=== PATIENT | female | born 1965 | race Caucasian/White ===

== ENCOUNTER 2020-08-04 12:40 | Day surgery (SDC) | payer OTHER ==
[2020-08-02 14:13] VITALS: BMI 35.2
--- OUTSIDE RECORDS SUMMARY | 2020-08-04 12:51 | XMS ---
:1965 Author Organization [facility] Support Name Relationship Address Phone [facility] Unavailable [address] [place] [address] ASIA GUTIERREZ SISTER [address] [place] [address] Re-disclosure Warning The records that you are about to access may contain information from federally- assisted alcohol or drug abuse programs. If such information is present, then the following federally mandated warning applies: This information has been disclosed to you from records protected by federal confidentiality rules (42 CFR part 2). The federal rules prohibit you from making any further disclosure of this information unless further disclosure is expressly permitted by the written consent of the person to whom it pertains or as otherwise permitted by 42 CFR part 2. A general authorization for the release of medical or other information is NOT sufficient for this purpose. The Federal rules restrict any use of the information to criminally investigate or prosecute any alcohol or drug abuse patient.The records that you are about to access may contain highly sensitive health information, the redisclosure of which is protected by Article 27-F of the [facility] Public Health law. If you continue you may haveaccess to information: Regarding HIV / AIDS; Provided by facilities licensed or operated by the [facility] Office of Mental Health; or Provided by the [facility] Office for People With Developmental Disabilities. If such information is present, then the following [facility] mandated warning applies: This information has been disclosed to you from confidential records which are protected by state law. State law prohibits you from making any further disclosure of this information without the specific written consent of the person to whom it pertains, or as otherwise permitted by law. Any unauthorized further disclosure in violation of state law may result in a fine or shelter sentence or both. A general authorization for the release of medical or other information is NOT sufficient authorization for further disclosure. Insurance Providers Payer name Policy type Policy ID Covered Covered democrat's Policy P roberta / Coverage democrat ID relationship to [employer] Inf ormation type [employer] [id number] SP [id number] [facility]
[2020-08-04 14:40] VITALS: PULSE 78; TEMP 97.8
[2020-08-04 15:05] VITALS: BP 110/78
--- NOTE | 2020-08-09 17:39 | PATH ---
Surgical Pathology Report Patient Name: ZHAO JOHNSON [facility]. Rec. #: [id number] /Age/Gender: 1965 (Age: 54) / F Account: [id number] Location: [facility] Taken: 08/04/2020 Received: 08/04/2020 Reported: 08/09/2020 Physicians: Kelsie Ureña M.D. Specimen(s) Received A: BIOPSY SECOND PORTION DUODENUM B: BIOPSY GASTRIC ANTRUM AND ULCER MARGIN C: BIOPSY GE JUNCTION Clinical History Abdominal pain Postoperative diagnosis: Gastric ulcer, gastritis Final Diagnosis A. DUODENUM, SECOND PORTION, BIOPSY: DUODENAL MUCOSA WITH MILD ACUTE AND CHRONIC DUODENITIS. B. GASTRIC ANTRUM AND ULCER MARGIN, BIOPSY: GASTRIC ANTRAL MUCOSA WITH FOCAL MILD CHRONIC ACTIVE GASTRITIS. IMMUNOHISTOCHEMICAL STAIN FOR H. PYLORI IS NEGATIVE. C. GE JUNCTION, BIOPSY: SQUAMOCOLUMNAR MUCOSA WITH MODERATE ACUTE AND CHRONIC INFLAMMATION AND CHANGES OF SEVERE REFLUX ESOPHAGITIS. NO INTESTINAL METAPLASIA OR DYSPLASIA IDENTIFIED. Positive and negative controls (internal if applicable) show appropriate results. Electronically Signed Kelsie Wiggins M.D. Gross Description A. Received in formalin, labeled "biopsy second portion of duodenum" is a church, irregular portion of soft tissue measuring 0.3 cm. in greatest dimension. The specimen is submitted in toto in one cassette. B. Received in formalin, labeled "biopsy gastric antrum and ulcer margin" are 2 church, irregular portions of soft tissue measuring 0.2 and 0.3 cm. in greatest dimension. The specimens are submitted in toto in one cassette. C. Received in formalin, labeled "biopsy GE junction" is a church, irregular portion of soft tissue measuring 0.4 cm. in greatest dimension. The specimen is submitted in toto in one cassette. DL08/07/2020 saudi08/07/2020
== END 2020-08-04 15:05 | disposition home or self-care (01) ==
LOC: FASU-ENDO 12:40
PROVIDERS: ATTEND Internal Medicine Gastroenterology
PROC: 0DB68ZX Excision of Stomach, Via Natural or Artificial Opening Endoscopic, Diagnostic (ICD-10-PCS; 2020-08-04)
PROC: 0DB48ZX Excision of Esophagogastric Junction, Via Natural or Artificial Opening Endoscopic, Diagnostic (ICD-10-PCS; 2020-08-04)
PROC: 0DB98ZX Excision of Duodenum, Via Natural or Artificial Opening Endoscopic, Diagnostic (ICD-10-PCS; principal; 2020-08-04 14:01)
DX: K25.9 Gastric ulcer, unspecified as acute or chronic, without hemorrhage or perforation (principal); K29.80 Duodenitis without bleeding; K29.50 Unspecified chronic gastritis without bleeding; K21.00 Gastro-esophageal reflux disease with esophagitis, without bleeding; R10.13 Epigastric pain
CPT/HCPCS: 88305-TC; 88342-TC

== ENCOUNTER 2020-08-20 11:20 | Inpatient (IN) | payer OTHER ==
[2020-08-20] MEDS ORDERED: FAMOTIDINE 20 MG/50 ML IVPB 20 MG/50 ML MG IVPB ONE ×2 (11:48→13:11)
[2020-08-20] MEDS ORDERED: ONDANSETRON 4 MG/2 ML VIAL IVPUSH ONE (11:48)
[2020-08-20] MEDS ORDERED: KETOROLAC TROMETHAMINE 15 MG/ML VIAL IVPUSH ONE (11:49)
[2020-08-20] MEDS ORDERED: SODIUM CHLORIDE 0.9% 500 ML INFUS.BAG IV ONE (11:49)
[2020-08-20] MEDS ORDERED: KETOROLAC TROMETHAMINE 15 MG/ML VIAL ONE (12:10)
[2020-08-20] MEDS ORDERED: HYOSCYAMINE SULFATE 0.125 MG *ODT PO ONE (12:16)
[2020-08-20 12:17] LABS: BASO % 0.3 % (0-2.0); EOS % 2.1 % (0-4.5); HEMATOCRIT 35.8 % (32.4-45.2); HEMOGLOBIN 12.3 GM/dL (10.7-15.3); LYMPH % 13.2 % (8-40); MCH 28.4 pg (25.7-33.7); MCHC 34.2 g/dl (32.0-36.0); NEUT % 80.4 % (42.8-82.8); PLATELET COUNT 178 K/MM3 (134-434); RBC 4.31 M/mm3 (3.60-5.2); RDW 13.5 % (11.6-15.6); WHITE BLOOD COUNT 6.4 K/mm3 (4.0-10.0)
[2020-08-20 12:36] LABS: EPI CELLS 3 /uL (0-25.1); HYALINE CASTS 0 /uL (0-3.1); PH,URINE 6.5 (5.0-8.0); URINE APPEARANCE CLOUDY; URINE BILIRUBIN NEGATIVE (NEGATIVE); URINE COLOR DK YELLOW; URINE GLUCOSE (UA) NEGATIVE (NEGATIVE); URINE KETONE NEGATIVE (NEGATIVE); URINE LEUK ESTERASE NEGATIVE (NEGATIVE); URINE NITRITE POSITIVE (NEGATIVE); URINE PROTEIN NEGATIVE (NEGATIVE); URINE RBC 16 /uL (0-23.9); URINE WBC 5 /uL (0-25.8)
[2020-08-20 12:45] LABS: POTASSIUM 5.3 mmol/L (3.5-5.1)
[2020-08-20 12:47] LABS: ALBUMIN 3.8 g/dl (3.4-5.0); CALCIUM 8.4 mg/dL (8.5-10.1)
[2020-08-20 12:48] LABS: BLOOD UREA NITROGEN 14.7 mg/dL (7-18)
[2020-08-20 12:51] LABS: CREATININE 0.7 mg/dL (0.55-1.3)
[2020-08-20 12:52] LABS: BILIRUBIN,TOTAL 1.3 mg/dL (0.2-1)
[2020-08-20] MEDS ORDERED: CEFTRIAXONE 1,000 MG in DEXTROSE 5%-WATER - 50 ML IVPB ONE (15:31)
[2020-08-20] MEDS ORDERED: METOCLOPRAMIDE HCL INJECTION 10 MG/2 ML VIAL IVPUSH ONE (15:31)
[2020-08-20] MEDS ORDERED: CEFTRIAXONE 1 GM/50 ML BAG ONE (15:56)
[2020-08-20] MEDS ORDERED: METOCLOPRAMIDE HCL INJECTION 10 MG/2 ML VIAL ONE (15:56)
[2020-08-20 16:22] LABS: URINE BACTERIA 45.8 /uL (0-1359)
[2020-08-20] MEDS ORDERED: ACETAMINOPHEN 1000 MG/100 ML VIAL (NON FORMULARY) IVPB PRN (16:58)
[2020-08-20] MEDS: SODIUM CHLORIDE 1,000 ML IV SCH (17:12)
[2020-08-20] MEDS: HEPARIN NA (PORCINE) 5,000 UNITS/ML 1ML VIAL SQ SCH ×2 (17:13→22:02)
[2020-08-20] MEDS: PANTOPRAZOLE SODIUM 40 MG VIAL IVPUSH SCH (17:13)
[2020-08-20] MEDS ORDERED: ACETAMINOPHEN INJECTION 100 ML IVPB ONE (17:34)
[2020-08-20 21:19] VITALS: BMI 36.5
[2020-08-20] MEDS ORDERED: FLU VACCINE (FLULAVAL) PF 60 MCG/0.5 ML SYRINGE 2020-2021 IM ONE (21:30)
[2020-08-20] MEDS: MORPHINE SULFATE 2 MG/ML VIAL IVPUSH PRN (22:00)
[2020-08-20] MEDS ORDERED: ONDANSETRON 4 MG/2 ML VIAL IVPUSH PRN (22:00)
[2020-08-21] MEDS: SODIUM CHLORIDE 1,000 ML IV SCH ×2 (04:15→17:42)
[2020-08-21] MEDS: MORPHINE SULFATE 2 MG/ML VIAL IVPUSH PRN (05:31)
[2020-08-21] MEDS: HEPARIN NA (PORCINE) 5,000 UNITS/ML 1ML VIAL SQ SCH ×3 (05:36→22:01)
[2020-08-21 07:46] LABS: BASO % 0.2 % (0-2.0); EOS % 2.2 % (0-4.5); HEMATOCRIT 31.3 % (32.4-45.2); HEMOGLOBIN 10.6 GM/dL (10.7-15.3); LYMPH % 20.1 % (8-40); MCH 28.2 pg (25.7-33.7); MEAN CELL VOLUME 82.9 fl (80-96); MEAN PLT VOLUME 7.5 fl (7.5-11.1); MONO % 4.4 % (3.8-10.2); NEUT % 73.1 % (42.8-82.8); PLATELET COUNT 153 K/MM3 (134-434); RBC 3.78 M/mm3 (3.60-5.2); RDW 13.5 % (11.6-15.6); WHITE BLOOD COUNT 5.3 K/mm3 (4.0-10.0)
[2020-08-21 07:47] LABS: INR 1.09 (0.83-1.09); PROTHROMBIN TIME (PATIENT) 13.2 SEC (9.7-13.0)
[2020-08-21 08:04] LABS: POTASSIUM 3.9 mmol/L (3.5-5.1)
[2020-08-21 08:06] LABS: ALBUMIN 3.2 g/dl (3.4-5.0); CALCIUM 8.7 mg/dL (8.5-10.1)
[2020-08-21 08:07] LABS: BLOOD UREA NITROGEN 9.4 mg/dL (7-18); MAGNESIUM 2.1 mg/dL (1.8-2.4)
[2020-08-21 08:10] LABS: CREATININE 0.6 mg/dL (0.55-1.3); PHOSPHOROUS 2.8 mg/dL (2.5-4.9)
[2020-08-21 08:11] LABS: BILIRUBIN,TOTAL 1.3 mg/dL (0.2-1)
[2020-08-21] MEDS ORDERED: cefTRIAXone SODIUM 1 GM VIAL ONE (08:45)
[2020-08-21] MEDS ORDERED: DEXTROSE 5%-WATER - 50 ML IVPB ONE (08:45)
[2020-08-21] MEDS ORDERED: SODIUM ZIRCONIUM CYCLOSILICATE (LOKELMA) 5 GM PACKET PO ONE (10:50)
[2020-08-21] MEDS: PANTOPRAZOLE SODIUM 40 MG VIAL IVPUSH SCH (12:08)
[2020-08-21] MEDS: CEFTRIAXONE 1 GM in DEXTROSE 5%-WATER - 50 ML IVPB SCH (12:08)
[2020-08-21] MEDS: oxyCODONE HCL 5 MG TABLET PO PRN ×2 (12:08→21:57)
[2020-08-21] MEDS: KETOROLAC TROMETHAMINE 15 MG/ML VIAL IVPUSH PRN (17:44)
[2020-08-21] MEDS ORDERED: MAGNESIUM HYDROX 2400MG/30ML ORAL SUSPENSION 30 ML CUP PO ONE (22:16)
[2020-08-21] MEDS: VENLAFAXINE HCL 75 MG E.R. CAPSULES PO SCH ×2 (22:40→23:58)
[2020-08-22] MEDS: KETOROLAC TROMETHAMINE 15 MG/ML VIAL IVPUSH PRN (06:14)
[2020-08-22] MEDS: SODIUM CHLORIDE 1,000 ML IV SCH ×2 (06:14→17:48)
[2020-08-22] MEDS: HEPARIN NA (PORCINE) 5,000 UNITS/ML 1ML VIAL SQ SCH ×3 (06:27→21:05)
[2020-08-22 08:44] LABS: POTASSIUM 4.1 mmol/L (3.5-5.1)
[2020-08-22 08:46] LABS: CALCIUM 9.3 mg/dL (8.5-10.1)
[2020-08-22 08:47] LABS: ALBUMIN 3.7 g/dl (3.4-5.0); BLOOD UREA NITROGEN 10.8 mg/dL (7-18); MAGNESIUM 2.1 mg/dL (1.8-2.4)
[2020-08-22 08:49] LABS: CREATININE 0.5 mg/dL (0.55-1.3)
[2020-08-22 08:50] LABS: PHOSPHOROUS 3.1 mg/dL (2.5-4.9)
[2020-08-22 08:51] LABS: BILIRUBIN,TOTAL 1.4 mg/dL (0.2-1); TOT PROT 6.6 g/dl (6.4-8.2)
[2020-08-22 09:00] LABS: BASO % 0.3 % (0-2.0); EOS % 3.1 % (0-4.5); HEMATOCRIT 34.3 % (32.4-45.2); HEMOGLOBIN 11.7 GM/dL (10.7-15.3); LYMPH % 21.8 % (8-40); MCH 28.3 pg (25.7-33.7); MEAN CELL VOLUME 83.2 fl (80-96); MEAN PLT VOLUME 7.6 fl (7.5-11.1); NEUT % 69.8 % (42.8-82.8); PLATELET COUNT 179 K/MM3 (134-434); RBC 4.12 M/mm3 (3.60-5.2); RDW 13.6 % (11.6-15.6)
[2020-08-22] MEDS ORDERED: cefTRIAXone SODIUM 1 GM VIAL ONE (09:10)
[2020-08-22] MEDS ORDERED: DEXTROSE 5%-WATER - 50 ML IVPB ONE (09:11)
[2020-08-22] MEDS: CEFTRIAXONE 1 GM in DEXTROSE 5%-WATER - 50 ML IVPB SCH (09:23)
[2020-08-22] MEDS: VENLAFAXINE HCL 75 MG E.R. CAPSULES PO SCH (10:12)
[2020-08-22] MEDS: PANTOPRAZOLE 40 MG TABLET PO SCH (10:12)
[2020-08-22] MEDS: POLYETHYLENE GLYCOL 3350 119 GM BTL PO SCH ×2 (12:01→21:05)
[2020-08-22] MEDS: oxyCODONE HCL 5 MG TABLET PO PRN (15:47)
[2020-08-22] MEDS: TAMSULOSIN HCL 0.4 MG CAP PO SCH ×2 (17:11→17:52)
[2020-08-22] MEDS: ACETAMINOPHEN 325 MG TABLET (FP) PO PRN (20:18)
[2020-08-23] MEDS: oxyCODONE HCL 5 MG TABLET PO PRN (00:04)
[2020-08-23] MEDS ORDERED: TRIMETHOBENZAMIDE HCL 200MG/2ML INJ IM ONE (01:27)
[2020-08-23] MEDS: ACETAMINOPHEN 325 MG TABLET (FP) PO PRN ×3 (02:16→18:14)
[2020-08-23] MEDS: SODIUM CHLORIDE 1,000 ML IV SCH ×2 (02:36→14:52)
[2020-08-23] MEDS: HEPARIN NA (PORCINE) 5,000 UNITS/ML 1ML VIAL SQ SCH (06:20)
[2020-08-23 08:19] LABS: BASO % 0.3 % (0-2.0); EOS % 1.9 % (0-4.5); HEMATOCRIT 33.4 % (32.4-45.2); HEMOGLOBIN 10.9 GM/dL (10.7-15.3); LYMPH % 16.7 % (8-40); MCH 27.2 pg (25.7-33.7); MCHC 32.8 g/dl (32.0-36.0); MEAN CELL VOLUME 82.9 fl (80-96); MEAN PLT VOLUME 7.4 fl (7.5-11.1); MONO % 4.6 % (3.8-10.2); NEUT % 76.5 % (42.8-82.8); PLATELET COUNT 190 K/MM3 (134-434); RBC 4.02 M/mm3 (3.60-5.2); RDW 13.5 % (11.6-15.6); WHITE BLOOD COUNT 5.2 K/mm3 (4.0-10.0)
[2020-08-23 08:37] LABS: POTASSIUM 5.1 mmol/L (3.5-5.1)
[2020-08-23 08:41] LABS: ALBUMIN 3.5 g/dl (3.4-5.0)
[2020-08-23 08:42] LABS: MAGNESIUM 2.4 mg/dL (1.8-2.4)
[2020-08-23 08:45] LABS: CREATININE 0.5 mg/dL (0.55-1.3); PHOSPHOROUS 3.3 mg/dL (2.5-4.9)
[2020-08-23 08:46] LABS: BILIRUBIN,TOTAL 1.1 mg/dL (0.2-1); TOT PROT 6.1 g/dl (6.4-8.2)
[2020-08-23] MEDS ORDERED: cefTRIAXone SODIUM 1 GM VIAL ONE (09:06)
[2020-08-23] MEDS ORDERED: DEXTROSE 5%-WATER - 50 ML IVPB ONE (09:06)
[2020-08-23] MEDS: TAMSULOSIN HCL 0.4 MG CAP PO SCH (09:26)
[2020-08-23] MEDS: PANTOPRAZOLE 40 MG TABLET PO SCH (09:26)
[2020-08-23] MEDS: VENLAFAXINE HCL 75 MG E.R. CAPSULES PO SCH (09:29)
[2020-08-23] MEDS: POLYETHYLENE GLYCOL 3350 119 GM BTL PO SCH ×2 (09:29→21:34)
[2020-08-23] MEDS: CEFTRIAXONE 1 GM in DEXTROSE 5%-WATER - 50 ML IVPB SCH (09:29)
[2020-08-24] MEDS: SODIUM CHLORIDE 1,000 ML IV SCH ×3 (03:37→23:28)
[2020-08-24 08:38] LABS: BASO % 0.2 % (0-2.0); EOS % 3.3 % (0-4.5); HEMATOCRIT 32.4 % (32.4-45.2); HEMOGLOBIN 10.6 GM/dL (10.7-15.3); LYMPH % 25.5 % (8-40); MCH 27.2 pg (25.7-33.7); MCHC 32.8 g/dl (32.0-36.0); MEAN PLT VOLUME 7.4 fl (7.5-11.1); MONO % 5.3 % (3.8-10.2); NEUT % 65.7 % (42.8-82.8); PLATELET COUNT 184 K/MM3 (134-434); RDW 13.8 % (11.6-15.6); WHITE BLOOD COUNT 4.5 K/mm3 (4.0-10.0)
[2020-08-24 09:08] LABS: POTASSIUM 4.7 mmol/L (3.5-5.1)
[2020-08-24 09:12] LABS: ALBUMIN 3.4 g/dl (3.4-5.0); BLOOD UREA NITROGEN 10.9 mg/dL (7-18); MAGNESIUM 2.3 mg/dL (1.8-2.4)
[2020-08-24 09:15] LABS: CREATININE 0.5 mg/dL (0.55-1.3)
[2020-08-24 09:16] LABS: BILIRUBIN,TOTAL 0.7 mg/dL (0.2-1); TOT PROT 5.9 g/dl (6.4-8.2)
[2020-08-24] MEDS: VENLAFAXINE HCL 75 MG E.R. CAPSULES PO SCH (10:08)
[2020-08-24] MEDS: PANTOPRAZOLE 40 MG TABLET PO SCH (10:08)
[2020-08-24] MEDS: POLYETHYLENE GLYCOL 3350 119 GM BTL PO SCH ×2 (10:08→22:44)
[2020-08-24] MEDS: TAMSULOSIN HCL 0.4 MG CAP PO SCH (10:08)
[2020-08-24] MEDS ORDERED: CEFTRIAXONE 1 GM in DEXTROSE 5%-WATER - 50 ML IVPB SCH (11:00)
[2020-08-24] MEDS ORDERED: cefTRIAXone SODIUM 1 GM VIAL ONE (11:05)
[2020-08-24] MEDS ORDERED: DEXTROSE 5%-WATER - 50 ML IVPB ONE (11:05)
[2020-08-24] MEDS ORDERED: DEXAMETHASONE SOD PHOSPHATE 4 MG/1 ML VIAL ONE (12:16)
[2020-08-24] MEDS ORDERED: MIDAZOLAM HCL 2 MG/2 ML SINGLE DOSE VIAL ONE (12:17)
[2020-08-24] MEDS ORDERED: ONDANSETRON 4 MG/2 ML VIAL IVPUSH PRN (14:06)
[2020-08-24] MEDS: oxyCODONE HCL 5 MG TABLET PO PRN ×2 (14:49→22:45)
[2020-08-24] MEDS: ACETAMINOPHEN 325 MG TABLET (FP) PO PRN (19:43)
[2020-08-25] MEDS ORDERED: TAMSULOSIN HCL 0.4 MG CAP PO SCH (08:30)
[2020-08-25] MEDS ORDERED: cefTRIAXone SODIUM 1 GM VIAL ONE (08:54)
[2020-08-25] MEDS ORDERED: DEXTROSE 5%-WATER - 50 ML IVPB ONE (08:54)
[2020-08-25 09:02] LABS: BASO % 0.3 % (0-2.0); EOS % 1.4 % (0-4.5); HEMOGLOBIN 10.9 GM/dL (10.7-15.3); MCH 27.5 pg (25.7-33.7); MCHC 33.1 g/dl (32.0-36.0); MEAN CELL VOLUME 83.1 fl (80-96); MEAN PLT VOLUME 7.7 fl (7.5-11.1); MONO % 4.8 % (3.8-10.2); NEUT % 73.5 % (42.8-82.8); PLATELET COUNT 199 K/MM3 (134-434); RBC 3.97 M/mm3 (3.60-5.2); RDW 13.9 % (11.6-15.6); WHITE BLOOD COUNT 7.1 K/mm3 (4.0-10.0)
[2020-08-25] MEDS: POLYETHYLENE GLYCOL 3350 119 GM BTL PO SCH (09:05)
[2020-08-25] MEDS: VENLAFAXINE HCL 75 MG E.R. CAPSULES PO SCH ×2 (09:07→09:11)
[2020-08-25] MEDS: ACETAMINOPHEN 325 MG TABLET (FP) PO PRN (09:14)
[2020-08-25 09:23] LABS: POTASSIUM 4.4 mmol/L (3.5-5.1)
[2020-08-25 09:29] LABS: CALCIUM 9.1 mg/dL (8.5-10.1)
[2020-08-25 09:30] LABS: ALBUMIN 3.4 g/dl (3.4-5.0); BLOOD UREA NITROGEN 11.1 mg/dL (7-18); MAGNESIUM 2.3 mg/dL (1.8-2.4)
[2020-08-25 09:33] LABS: CREATININE 0.5 mg/dL (0.55-1.3)
[2020-08-25 09:34] LABS: BILIRUBIN,TOTAL 0.6 mg/dL (0.2-1); TOT PROT 6.2 g/dl (6.4-8.2)
[2020-08-25] MEDS ORDERED: CEFTRIAXONE 1 GM in DEXTROSE 5%-WATER - 50 ML IVPB SCH (10:00)
[2020-08-25] MEDS ORDERED: PANTOPRAZOLE 40 MG TABLET PO SCH (10:00)
[2020-08-25 18:27] VITALS: BP 147/79; PULSE 64; TEMP 97.7
== END 2020-08-25 18:25 | disposition home or self-care (01) | DRG 661 ==
LOC: JER 11:20 → JERBED 15:31 → J5S 18:21
PROVIDERS: ADMIT Student in an Organized Health Care Education/Training Program; ATTEND Student in an Organized Health Care Education/Training Program
PROC: 0T768DZ Dilation of Right Ureter with Intraluminal Device, Via Natural or Artificial Opening Endoscopic (ICD-10-PCS; principal; 2020-08-24 12:30)
PROC: BT1DZZZ Fluoroscopy of Right Kidney, Ureter and Bladder (ICD-10-PCS; 2020-08-24 12:30)
DX: N13.6 Pyonephrosis (principal); K21.9 Gastro-esophageal reflux disease without esophagitis; F32.9 Major depressive disorder, single episode, unspecified; K27.9 Peptic ulcer, site unspecified, unspecified as acute or chronic, without hemorrhage or perforation; R11.2 Nausea with vomiting, unspecified; Z88.0 Allergy status to penicillin; K59.09 Other constipation
CPT/HCPCS: 36415; 71045-TC-FY; 74177-TC; 76000-TC-FY; 76775; 80053; 81003; 83605; 83735; 84100; 84703; 85025; 85610; 87040; 87086; 93005; 93010; 94760; 99285-25; C9803; G0008; J0131; J1644; Q2036; Q9967; U0003